=== PATIENT | female | born 1980 | race Caucasian/White ===

== ENCOUNTER 2017-06-30 19:55 | Emergency (ER) | payer SELFPAY | END 2017-06-30 20:58 | disposition home or self-care (01) | LOC: ERS 19:55 | DX: R21 Rash and other nonspecific skin eruption (principal); R03.0 Elevated blood-pressure reading, without diagnosis of hypertension | CPT/HCPCS: 99282 ==

== ENCOUNTER 2018-03-15 14:38 | Day surgery (SDC) | payer MEDICAID, OTHER ==
[2018-03-15 15:54] VITALS: BMI 40.7
[2018-03-15 16:03] LABS: #Basophils 0.1 thou/uL (0.0-0.2); #Eosinphils 0.3 thou/uL (0.0-0.7); #Lymphocytes 1.6 thou/uL (1.20-3.40); #Monocytes 0.9 thou/uL (0.11-0.59); #Neutrophils 6.6 thou/uL (1.40-6.50); %Basophils 0.6 % (0.0-1.0); %Eosinophils 2.8 % (0.0-10.0); %Lymphocytes 16.9 % (21.0-51.0); %Monocytes 9.7 % (0.0-10.0); Mean Corpuscular HGB CONC 35.1 g/dL (32.0-36.0); Mean Corpuscular Hemoglobin 32.5 pg (27.0-31.0); Mean Corpuscular Volume 92.7 fL (78.0-98.0); Platelet Count 154 thou/uL (130-400); RBC Distribution Width 11.4 % (11.5-14.5); Red Blood Cell (RBC) Count 3.06 mill/uL (4.20-5.40); White Blood Cell (WBC) Count 9.4 thou/uL (4.8-10.8)
--- NOTE | 2018-03-15 16:13 | PRG ---
DATE OF SERVICE: 03/15/2018 [facility], other care in [place] CHIEF COMPLAINT: Nausea with the right upper quadrant tenderness. HISTORY OF PRESENT ILLNESS: The patient is a 38-year-old multigravid female with an intrauterine pre gnancy at 35 weeks and 2 days who is presenting with a 2-week history of right upper quadrant pain an d 1 day history of nausea. The patient reports a history of gallstones diagnosed in 2013, but denies any other abdominal pain during this . Her primary OB was made aware of her condition last Monday and gave her reassurance. The patient reports nausea without vomiting. She reports decrease d appetite. Denies fever, denies fall, chest pain, shortness of breath. She denies any diarrhea or constipation. She denies any new rashes. She denies hip problems, knee problems, muscle weakness. Denies vaginal bleeding or leakage of fluid. Denies urinary urgency. She does report a change in od or to her urine; however, the patient denies any back pain. The patient also reports she has been having decreased movement in the last 24 hours. PAST MEDICAL HISTORY: Noncontributory. PAST SURGICAL HISTORY: She has had 1 previous . She has also had ankle surgery. SOCIAL HISTORY: She denies drug, alcohol or tobacco use. MEDICATIONS: She reports vitamins. ALLERGIES: Reports she is allergic to MORPHINE due to itching. OBSTETRIC LABORATORY DATA: Unavailable. REVIEW OF SYSTEMS: Per HPI. PHYSICAL EXAMINATION: VITAL SIGNS: Blood pressure is 123/57, heart rate 98, respiratory rate of 18. GENERAL: She appears to be in no acute distress. The patient is alert and oriented, appears to be i n no acute distress. She is pleasant and cooperative to interact with. HEENT: Normocephalic, atraumatic. LUNGS: Clear to auscultation bilaterally. HEART: Regular rate and rhythm. ABDOMEN: Protuberant and gravid. She does have tenderness at the right upper quadrant with a positi ve Rogers sign. She has no CVA tenderness. No left upper quadrant tenderness. No tenderness to dev iation of the uterus. EXTREMITIES: Nontender, nonedematous. GENITOURINARY: Has been deferred. LABORATORY DATA: heart tracing and NST performed for decreased movement. Tracing has be en on for approximately 30 minutes. Baseline is noted to be in the 140s with moderate long-term vari ability, positive 15 x 15 accelerations, no decelerations, no contractions on the monitor. A CMP and CBC have been ordered and are pending. There is a right upper quadrant ultrasound ordered that is p ending. ASSESSMENT AND PLAN: The patient is a 38-year-old multiparous female with an intrauterine at 35 weeks and 2 days, getting care at an outside facility with plans to deliver in [place] . The patient presented with right upper quadrant pain that has been present for days to weeks and h as new onset nausea and decreased appetite. The patient does report a known history of gallstones, w ill be evaluating her gallbladder by ultrasound for any signs of worsening disease, obstruction or in fection. I will also be drawing a CBC and CMP which are pending. Fetus has a reactive NST and categ ory [address] Castrejon is coming back on duty and will all be checking out to him who will be matteo villagomez final disposition.
[2018-03-15 16:25] LABS: ALT (SGPT) 13 U/L (8-55); AST (SGOT) 13 U/L (5-34); Albumin 3.2 g/dL (3.5-5.0); Alkaline Phosphatase 92 U/L (40-150); Anion Gap 9 mmol/L (10-20); BUN (Urea Nitrogen) 4 mg/dL (7.0-18.7); Bilirubin, Total 0.4 mg/dL (0.2-1.2); Calc. Creatinine Clearance 221 mL/min (70-130); Calcium 8.4 mg/dL (7.8-10.44); Carbon Dioxide 23 mmol/L (22-29); Chloride 108 mmol/L (98-107); Estimated GFR-MDRD Greater than 90; Globulin 2.7 g/dL (2.4-3.5); Glucose 116 mg/dL (70-105); Potassium 3.8 mmol/L (3.5-5.1); Protein, Total 5.9 g/dL (6.0-8.3); Sodium 136 mmol/L (136-145)
--- NOTE | 2018-03-15 17:13 | PDOC.EVN ---
Event Note - Event Note Event Note: Patient's sono revealed multiple GB stones but no GB wall thickening, and no evidence of a stone in the duct (no CBD dilation). Her CBC and LFTs are wnl. I discussed Bentyl with her and I have ordered a RX for 20mg po TID with meals. She giorgi follow up next week with her primary OBGYN which is in [place].
--- NOTE | 2018-03-15 18:50 | ULT ---
ULTRASOUND ABDOMEN: 03/15/18 HISTORY: Right upper quadrant pain. 36 weeks . COMPARISON: The visualized portions of the aorta is normal. The liver measures 15 cm in length. Spleen measures 1 0.9 cm in length. There is innumerable cholelithiasis. Gallbladder wall thickness upper limits of normal. Sonographic M urphy's sign is negative. Common bile duct measures 4 mm, normal. Right kidney measures 12.6 x 6.2 x 6.6 cm. Left kidney measures 12 x 6.9 x 6 cm. There is mild right sided hydroureteronephrosis. IMPRESSION: 1. Mild to moderate right sided hydroureteronephrosis. 2. Incompletely evaluated although the amniotic fluid index measures just over 20 cm, mildly inc reased. 3. Cholelithiasis. POS: [facility]
--- NOTE | 2018-03-16 09:24 | ADD-HP ---
ADDENDUM DATE OF SERVICE: 03/15/2018 TIME OF EVALUATION: Roughly 15:45 until 1600 LOCATION: Labor and Delivery in triage bed A. This is a patient here at approximately 35 weeks with known gallstones here for right upper quadrant pain. This is a patient who was first evaluated by my partner bi solutions architect, Dr. Richmond Moy, and I have resu med care of the patient at 1600. The patient has been seen at bedside. HISTORY OF PRESENT ILLNESS: In brief and as probably dictated by Dr. Moy in his H and P, this is a patient with G2, P1 at 35 weeks with known history of gallstones. She was diagnosed with gallston es in the previous about 4 years ago. She now presents with right upper quadrant pain and some persistent nausea. She also states that the baby was moving previously, but as of today when th e pain began in the right upper quadrant area, she had noticed decreased movement. No history of contractions or vaginal bleeding or rupture of membranes. REVIEW OF SYSTEMS: Review of systems was completed by myself and Dr. Moy and is as per HPI. ALLERGIES: None. PAST SURGICAL HISTORY: x1 and left ankle surgery. MEDICATIONS: Nexium for GERD. ALLERGIES: None. OBSTETRIC HISTORY: She is a G2, P1 with a prior x1. PHYSICAL EXAMINATION: The patient was seen at bedside. Vital signs were stable and normotensive. T here was no evidence of hypertension. The patient was lying on her side and appeared to be in no acu te distress. Cervical exam was currently deferred as there is no evidence of labor or ruptur e of membranes by history. On external Doppler monitoring, heart tones in the 130s to 140s with accelerations noted and mo derate variability. Criteria for reactive strip is met. On tocodynamometer, there is no evidence of an overt contraction pattern. Interventions ordered, a CBC, CMP, and right upper quadrant ultrasound has been ordered. ASSESSMENT: This is a patient who is a G2, P1, prior x1 at 35 weeks with a history of gall stones with an episode of what sounds like biliary colic. There is no evidence of fever and so my brady spicion for cholecystitis is low. PLAN: 1. We will await labs. 2. We can offer an antispasmodic like Bentyl for right upper quadrant pain relief. 3. Low fat diet will be recommended at discharge once evaluation is done. 4. If there is evidence of a stone in the common bile duct, we may consider General surgical evaluat ion. 5. If there is evidence of gallbladder wall thickening and/or of Rogers's signs with the ultrasound, we may consider General Surgery consult. 6. For now, there is no evidence of an acute morbid condition, with an episode of biliary colic whic h can be treated medically.
== END 2018-03-15 17:31 | disposition home or self-care (01) ==
LOC: L&D/OP 14:38
PROVIDERS: ATTEND Obstetrics & Gynecology
DX: O99.613 Diseases of the digestive system complicating pregnancy, third trimester (principal); K80.20 Calculus of gallbladder without cholecystitis without obstruction; K21.9 Gastro-esophageal reflux disease without esophagitis; Z3A.35 35 weeks gestation of pregnancy; Z88.5 Allergy status to narcotic agent
CPT/HCPCS: 36415; 59025; 76700; 80053; 85025; 99282